=== PATIENT | male | born 1975 | race Caucasian/White ===

== ENCOUNTER → 2021-06-11 08:23 | Outpatient (BNVA) | payer BC, SELFPAY | PROVIDERS: Visit Provider Internal Medicine Gastroenterology ==

== ENCOUNTER 2022-09-02 10:22 | Outpatient (REF) | payer BC, SELFPAY ==
[2022-09-02 10:36] LABS: MANUAL DIFF FLAG NO
[2022-09-02 11:56] LABS: Basophils Percent Auto 0.5 % (0-2); Eosinophils Absolute Auto 0.3 X10*3/uL (0.0-0.4); Eosinophils Percent Auto 4.1 % (0-4); Hematocrit 49.2 % (42.0-52.0); Hemoglobin 16.2 g/dl (14.0-18.0); Imm Gran Abs Auto 0.02 X10*3/uL (0.00-0.03); Imm Gran Pct Auto 0.3 % (0.0-0.4); Lymphocytes Absolute Auto 1.8 X10*3/uL (1.2-4.9); Lymphocytes Percent Auto 28.6 % (20-40); Mean Corpuscular HGB Conc 32.9 g/dl (31.0-36.0); Mean Corpuscular Hemoglobin 28.2 pg (27.0-33.0); Mean Corpuscular Volume 85.7 fL (80.0-98.0); Monocytes Absolute Auto 0.7 X10*3/uL (0.1-1.2); Monocytes Percent Auto 10.6 % (2-11); Neutrophils Absolute Auto 3.4 x10*3/uL (2.0-8.3); Neutrophils Percent Auto 55.9 % (45-73); Platelet Count 250 X10*3/uL (160-400); Red Blood Count 5.74 X10*6/uL (4.60-5.80); Red Cell Distribution Width 13.2 % (11.0-16.0); White Blood Count 6.1 X10*3/uL (4.8-10.8)
[2022-09-02 14:00] LABS: Alanine Aminotransferase 47 U/L (0-40); Albumin Level 4.4 g/dL (3.5-5.0); Alkaline Phosphatase 93 U/L (39-117); Anion Gap 12 (12-20); Aspartate Amino Transferase 24 U/L (5-37); Bilirubin Total 0.3 mg/dL (0.0-1.0); Blood Urea Nitrogen 14 mg/dL (9-16); Calcium 9.7 mg/dL (8.4-10.2); Carbon Dioxide 27 mmol/L (22-29); Chloride 104 mmol/L (96-108); Estimated Glomerular Filt Rate > 60; Ferritin 111 ng/mL (20-250); Glucose Random 79 mg/dL (60-115); Magnesium 2.4 mg/dL (1.6-2.6); Potassium 4.8 mmol/L (3.3-5.1); Sodium 138 mmol/L (135-145); Total Protein 7.2 g/dL (6.5-8.0); Vitamin D 25-OH Total 39.8 ng/mL (>30)
[2022-09-02 14:59] LABS: Folate 15.2 ng/mL (> or = 4.0); Vitamin B12 402 pg/mL (200-900)
[2022-09-08 12:49] LABS: Vitamin A 59 mcg/dL (38-98)
== END 2022-09-02 10:23 | disposition home or self-care (01) ==
LOC: HO.LAB 10:22
PROVIDERS: Visit Provider Internal Medicine Gastroenterology
DX: K20.0 Eosinophilic esophagitis (principal); K75.81 Nonalcoholic steatohepatitis (NASH)
CPT/HCPCS: 36415; 80053; 82306; 82607; 82728; 82746; 83735; 84590; 85025

== ENCOUNTER 2022-11-03 10:47 | Outpatient (REF) | payer BC, SELFPAY ==
[2022-11-03 13:00] LABS: Alanine Aminotransferase 43 U/L (0-40); Albumin Level 4.3 g/dL (3.5-5.0); Alkaline Phosphatase 96 U/L (39-117); Anion Gap 14 (12-20); Aspartate Amino Transferase 26 U/L (5-37); Bilirubin Total 0.5 mg/dL (0.0-1.0); Blood Urea Nitrogen 16 mg/dL (9-16); Calcium 9.5 mg/dL (8.4-10.2); Carbon Dioxide 25 mmol/L (22-29); Chloride 105 mmol/L (96-108); Estimated Glomerular Filt Rate > 60; Glucose Random 75 mg/dL (60-115); Potassium 4.6 mmol/L (3.3-5.1); Sodium 139 mmol/L (135-145); Total Protein 7.1 g/dL (6.5-8.0)
== END 2022-11-03 10:48 | disposition home or self-care (01) ==
LOC: HO.LAB 10:47
PROVIDERS: Visit Provider Internal Medicine Gastroenterology
DX: K75.81 Nonalcoholic steatohepatitis (NASH) (principal)
CPT/HCPCS: 36415; 80053

== ENCOUNTER 2023-10-02 09:01 | Outpatient (AMB) | payer BC, SELFPAY ==
--- NOTE | 2023-10-02 09:03 | MHC.OFFVIS ---
Intake Vital Signs 10/02/23 09:06 Height 6 ft 3 in Weight 211 lb 10.3 oz BMI 26.5 BP 130/82 Blood Pressure Location Lt brachial Position Sitting Pulse 76 Intake Visit Reasons: 1 year follow up Intake Note: Jose presents in the office as a 1 year follow up. CC: He states that he is not having any concerns today. Consumer Education Specialist Required: No Allergies No Known Allergies Allergy (Verified 10/02/23 09:07) HPI 1 year follow up HPI Details ?47 yr old m being seen for f/u for chronic dysphagia ? JAMES has had food sticking in throat for several? years ?he tries different techniques to get it out or let it? move ?he went to ED recently and was given glucagon which? helped ?usu solids, hung meat, ok with liquids ?stool is? normal, no blood in stool or melena ?denies reflux ?no? abdominal pain ?did rast testing and numerous allergies found on? testing, incl egg white, wheat, walnut, almond, peanut, sesame? seeds ?EGD 10/2019--severe esophagitis, stricture noted ?EGD? 02/2020-- v mild esophagitis, 20 mm dilation with small tear noted ?bx? with increased increased eosinophils at GEJ and random? esophagus ?sx suspected to be 2/2 PPI repsonsive EoE, with food allergies superimposed he was doing well INTERIM: He is doing well, no complaints stopped taking mutlivitamin daily but has been more healthy over all he is compliant with pantoprazole BID, ?appetite is? normal ?weight is normal no diarrhea or constipation EXAM: GENERAL: The patient is well developed and nontoxic. VITAL SIGNS:see workflow HEENT: Nonicteric sclerae, PERRLA, EOMI. Oropharynx clear. Moist mucous membranes. Conjunctivae appear well perfused. No thyroid mass. CHEST: Chest wall is nontender. HEART: Regular rate and rhythm without murmurs. LUNGS: Clear to auscultation bilaterally. ABDOMEN: Soft, positive bowel sounds, nontender, no organomegaly.no flank tenderness SKIN: No rash, no excessive bruising, petechiae, or purpura. NEUROLOGIC: Cranial nerves II-XII intact without motor/sensory deficit. Psych: normal affect A/P: 1. Esophageal dysphagia-----suspected PPI responsive EoE 2. Food allergies 3/ mild raised ALT, low HDL, high trig PLAN: 1/ cont with PPI indefinitely--will try once a day now and see how he does 2/ periodic labs monitoring due to group home PPI i.e b12, iron, Mag, Vit D and BMP, order in, 3/ discussed colonoscopy for screening and options of stool tests and colonoscopy-again reminded on this he is still unsure as before, reminded in importance of screening to prevent cancer 4/ recheck lipid panel, [facility] Surgical History History of esophagogastroduodenoscopy (EGD) No pertinent past surgical history Family History Father No problems noted. Mother No problems noted. 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 i.e b12, iron, Mag, Vit D and BMP, order in, 3/ discussed colonoscopy for screening and options of stool tests and colonoscopy-again reminded on this he is still unsure as before, reminded in importance of screening to prevent cancer 4/ recheck lipid panel, (2) Malnutrition: Code(s): E46 - Unspecified protein-calorie malnutrition Plan: PLAN: 1/ cont with PPI indefinitely--will try once a day now and see how he does 2/ periodic labs monitoring due to group home PPI i.e b12, iron, Mag, Vit D and BMP, order in, 3/ discussed colonoscopy for screening and options of stool tests and colonoscopy-again reminded on this he is still unsure as before, reminded in importance of screening to prevent cancer 4/ recheck lipid panel, (3) Low serum HDL: Code(s): R74.8 - Abnormal levels of other serum enzymes Plan: PLAN: 1/ cont with PPI indefinitely--will try once a day now and see how he does 2/ periodic labs monitoring due to train braker PPI i.e b12, iron, Mag, Vit D and BMP, order in, 3/ discussed colonoscopy for screening and options of stool tests and colonoscopy-again reminded on this he is still unsure as before, reminded in importance of screening to prevent cancer 4/ recheck lipid panel, Orders: Orders Magnesium Today E46 - Unspecified protein-calorie malnutrition, K20.0 - Eosinophilic esophagitis Vitamin D 25-OH Total Today E46 - Unspecified protein-calorie malnutrition, K20.0 - Eosinophilic esophagitis Lipid Panel with Reflex Today E46 - Unspecified protein-calorie malnutrition, K20.0 - Eosinophilic esophagitis, R74.8 - Abnormal levels of other serum enzymes Complete Blood Count Auto Diff Today E46 - Unspecified protein-calorie malnutrition, K20.0 - Eosinophilic esophagitis Comprehensive Met. Panel Today E46 - Unspecified protein-calorie malnutrition, K20.0 - Eosinophilic esophagitis, K75.81 - Nonalcoholic steatohepatitis (GARCIA) Vitamin B12 and Folate Today E46 - Unspecified protein-calorie malnutrition, K20.0 - Eosinophilic esophagitis Ferritin Today E46 - Unspecified protein-calorie malnutrition, K20.0 - Eosinophilic esophagitis Coding Level of Care Code Est Pt Level 3 (90902) Diagnoses Eosinophilic esophagitis K20.0 Malnutrition E46 Low serum HDL R74.8
[2023-10-02 09:06] VITALS: BP 130/82; PULSE 76; BMI 26.5
== END 2023-10-02 09:29 | disposition home or self-care (01) ==
PROVIDERS: Visit Provider Internal Medicine Gastroenterology
DX: K20.0 Eosinophilic esophagitis (principal); E46 Unspecified protein-calorie malnutrition; R74.8 Abnormal levels of other serum enzymes
CPT/HCPCS: 99213

== ENCOUNTER → 2023-10-02 09:01 | Outpatient (BNVA) | payer BC, SELFPAY | PROVIDERS: Visit Provider Internal Medicine Gastroenterology ==

== ENCOUNTER 2023-10-05 06:02 | Outpatient (REF) | payer BC, SELFPAY ==
[2023-10-05 06:28] LABS: MANUAL DIFF FLAG NO
[2023-10-05 07:33] LABS: Basophils Percent Auto 0.4 % (0-2); Eosinophils Absolute Auto 0.2 X10*3/uL (0.0-0.4); Eosinophils Percent Auto 3.8 % (0-4); Hematocrit 49.3 % (42.0-52.0); Hemoglobin 16.2 g/dl (14.0-18.0); Imm Gran Abs Auto 0.02 X10*3/uL (0.00-0.03); Imm Gran Pct Auto 0.4 % (0.0-0.4); Lymphocytes Absolute Auto 1.9 X10*3/uL (1.2-4.9); Lymphocytes Percent Auto 34.8 % (20-40); Mean Corpuscular HGB Conc 32.9 g/dl (31.0-36.0); Mean Corpuscular Hemoglobin 28.5 pg (27.0-33.0); Mean Corpuscular Volume 86.8 fL (80.0-98.0); Mean Platelet Volume 9.8 fL (9.4-12.4); Monocytes Absolute Auto 0.5 X10*3/uL (0.1-1.2); Monocytes Percent Auto 8.6 % (2-11); Neutrophils Absolute Auto 2.9 x10*3/uL (2.0-8.3); Platelet Count 249 X10*3/uL (160-400); Red Blood Count 5.68 X10*6/uL (4.60-5.80); Red Cell Distribution Width 12.8 % (11.0-16.0); White Blood Count 5.6 X10*3/uL (4.8-10.8)
[2023-10-05 08:10] LABS: Alanine Aminotransferase 34 U/L (0-40); Albumin Level 4.2 g/dL (3.5-5.0); Alkaline Phosphatase 78 U/L (39-117); Anion Gap 11 (12-20); Aspartate Amino Transferase 20 U/L (5-37); Bilirubin Total 0.6 mg/dL (0.0-1.0); Blood Urea Nitrogen 15 mg/dL (9-16); Calcium 9.4 mg/dL (8.4-10.2); Carbon Dioxide 28 mmol/L (22-29); Chloride 105 mmol/L (96-108); Cholesterol 217 mg/dL (<200); Estimated Glomerular Filt Rate > 60; Glucose Random 83 mg/dL (60-115); HDL Cholesterol 55 mg/dL (>40); LDL Cholesterol Calculated 149 mg/dL (<100); Magnesium 2.2 mg/dL (1.6-2.6); Potassium 4.1 mmol/L (3.3-5.1); Sodium 140 mmol/L (135-145); Total Protein 7.3 g/dL (6.5-8.0); Triglycerides 67 mg/dL (<150)
[2023-10-05 08:26] LABS: Ferritin 116 ng/mL (20-250); Vitamin D 25-OH Total 36.1 ng/mL (>30)
[2023-10-05 08:40] LABS: Folate 5.8 ng/mL (> or = 4.0); Vitamin B12 361 pg/mL (200-900)
[2023-10-05 08:53] LABS: Reflex LDLD? No
== END 2023-10-05 06:03 | disposition home or self-care (01) ==
LOC: HO.LAB 06:02
PROVIDERS: Visit Provider Internal Medicine Gastroenterology
DX: K75.81 Nonalcoholic steatohepatitis (NASH) (principal); E46 Unspecified protein-calorie malnutrition; K20.0 Eosinophilic esophagitis; R74.8 Abnormal levels of other serum enzymes
CPT/HCPCS: 36415; 80053; 80061; 82306; 82607; 82728; 82746; 83735; 85025

== ENCOUNTER 2024-11-25 09:08 | Outpatient (AMB) | payer BC, SELFPAY ==
--- NOTE | 2024-11-25 09:08 | MHC.OFFVIS ---
Intake Visit Reasons: [phone] 1 year follow up Intake Note: Jose presents as a telehealth today to just have his yearly check up. IS not having any concerns at this time. Allergies No Known Allergies Allergy (Verified 10/02/23 09:07) [facility] [phone] 1 year follow up: Details: 49 yr old m being seen for f/u for chronic dysphagia RECAP has had food sticking in throat for several years he tries different techniques to get it out or let it move he went to ED recently and was given glucagon which helped usu solids, hung meat, ok with liquids stool is normal, no blood in stool or melena denies reflux no abdominal pain did rast testing and numerous allergies found on testing, incl egg white, wheat, walnut, almond, peanut, sesame seeds EGD 10/2019--severe esophagitis, stricture noted EGD 02/2020-- v mild esophagitis, 20 mm dilation with small tear noted bx with increased increased eosinophils at GEJ and random esophagus sx suspected to be 2/2 PPI repsonsive EoE, with food allergies superimposed he was doing well INTERIM: He has no concerns swallowing is good, no issues he is taking pantoprazole once day and it works well he is not taking multivitamin appetite is good no diarrhea or constipation EXAM: GENERAL: The patient is well developed and nontoxic. A/P: 1. Esophageal dysphagia-----suspected PPI responsive EoE 2. 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 Mother No problems noted. Brother In good health Brother In [facility] health Telehealth Telehealth [facility]health [facility] Location of provider rendering services: practice address Location of patient: address on file Patient Identification confirmed using: Name, : Yes Telehealth method: video Patient verbally consented to treatment: Yes Patient verbally consented to billing insurance company: Yes Patient informed of any privacy concerns related to visit: Yes Minutes spent on Phone/Video with Pt.: 6 Assessment & Plan Assessment & Plan (1) Eosinophilic esophagitis: Code(s): K20.0 - Eosinophilic esophagitis Category: Medical Plan: as above Orders: Orders Complete Blood Count Auto Diff Today K20.0 - Eosinophilic esophagitis Magnesium Today K20.0 - Eosinophilic esophagitis Comprehensive Met. Panel Today K20.0 - Eosinophilic esophagitis, K75.81 - Nonalcoholic steatohepatitis (GARCIA) Ferritin Today K20.0 - Eosinophilic esophagitis Vitamin D 25-OH Total Today K20.0 - Eosinophilic esophagitis Vitamin B12 and Folate Today K20.0 - Eosinophilic esophagitis Medications: Changed From pantoprazole 40 mg PO BID 60 tabs 11RF To pantoprazole 40 mg PO QAM 60 tabs 11RF Coding Level of Care Code Tele Est Pt Level 3 (48941) Diagnoses Eosinophilic esophagitis K20.0
== END 2024-11-25 10:10 | disposition home or self-care (01) ==
LOC: HO.HGI 09:08
PROVIDERS: Visit Provider Internal Medicine Gastroenterology
DX: K20.0 Eosinophilic esophagitis (principal)
CPT/HCPCS: 99213

== ENCOUNTER 2024-12-31 06:16 | Outpatient (REF) | payer BC, SELFPAY ==
[2024-12-31 06:30] LABS: MANUAL DIFF FLAG NO
[2024-12-31 07:46] LABS: Basophils Percent Auto 0.5 % (0-2); Eosinophils Absolute Auto 0.2 X10*3/uL (0.0-0.4); Eosinophils Percent Auto 2.7 % (0-4); Hemoglobin 14.8 g/dl (14.0-18.0); Imm Gran Abs Auto 0.02 X10*3/uL (0.00-0.03); Imm Gran Pct Auto 0.3 % (0.0-0.4); Lymphocytes Absolute Auto 2.1 X10*3/uL (1.2-4.9); Lymphocytes Percent Auto 32.8 % (20-40); Mean Corpuscular HGB Conc 33.6 g/dl (31.0-36.0); Mean Corpuscular Hemoglobin 28.2 pg (27.0-33.0); Mean Platelet Volume 9.7 fL (9.4-12.4); Monocytes Absolute Auto 0.6 X10*3/uL (0.1-1.2); Monocytes Percent Auto 9.4 % (2-11); Neutrophils Absolute Auto 3.5 x10*3/uL (2.0-8.3); Neutrophils Percent Auto 54.3 % (45-73); Platelet Count 262 X10*3/uL (160-400); Red Blood Count 5.24 X10*6/uL (4.60-5.80); White Blood Count 6.4 X10*3/uL (4.8-10.8)
[2024-12-31 08:29] LABS: Alanine Aminotransferase 41 U/L (0-40); Albumin Level 4.2 g/dL (3.5-5.0); Alkaline Phosphatase 97 U/L (39-117); Anion Gap 11 (12-20); Aspartate Amino Transferase 33 U/L (5-37); Bilirubin Total 0.3 mg/dL (0.0-1.0); Blood Urea Nitrogen 21 mg/dL (9-16); Calcium 9.2 mg/dL (8.4-10.2); Carbon Dioxide 23 mmol/L (22-29); Chloride 108 mmol/L (96-108); Estimated Glomerular Filt Rate > 60; Glucose Random 82 mg/dL (60-115); Magnesium 2.2 mg/dL (1.6-2.6); Potassium 4.1 mmol/L (3.3-5.1); Sodium 138 mmol/L (135-145); Total Protein 7.2 g/dL (6.5-8.0)
[2024-12-31 08:47] LABS: Ferritin 90 ng/mL (20-250); Vitamin D 25-OH Total 36.1 ng/mL (>30)
[2024-12-31 08:52] LABS: Folate 8.2 ng/mL (> or = 4.0); Vitamin B12 453 pg/mL (200-900)
== END 2024-12-31 06:17 | disposition home or self-care (01) ==
LOC: HO.LAB 06:16
PROVIDERS: Visit Provider Internal Medicine Gastroenterology
DX: K20.0 Eosinophilic esophagitis (principal); K75.81 Nonalcoholic steatohepatitis (NASH)
CPT/HCPCS: 36415; 80053; 82306; 82607; 82728; 82746; 83735; 85025